=== PATIENT | male | born 2000 | race Caucasian/White ===

== ENCOUNTER 2019-09-19 09:49 | Emergency (ER) | payer MEDICAID ==
[~2019-09-19] VITALS: Ht 182.9 cm; Wt 72.7 kg
[2019-09-19 09:54] VITALS: BP 135/94
[2019-09-19] MEDS ORDERED: IBUPROFEN 800 MG TABLET PO ONE (10:30)
== END 2019-09-19 10:48 | disposition home or self-care (01) ==
LOC: EMS 09:59
DX: M54.5 Low back pain (principal)

== ENCOUNTER 2023-10-14 09:52 | Emergency (ER) | payer OTHER ==
[~2023-10-14] VITALS: Ht 182.9 cm; Wt 122.7 kg
[2023-10-14 09:55] VITALS: TEMP 99.4
[2023-10-14 10:04] LABS: COVID AG,FIA SOURCE NASAL SWAB
[2023-10-14 10:37] LABS: SARS-COV2 (COVID) ANTIGEN,FIA Negative (Negative)
[2023-10-14 10:40] LABS: INFLUENZA TYPE A NEGATIVE FOR TYPE A (NEGATIVE); INFLUENZA TYPE B NEGATIVE FOR TYPE B (NEGATIVE)
[2023-10-14 10:50] LABS: RAPID GROUP A STREP NEGATIVE (NEGATIVE)
[2023-10-14] MEDS ORDERED: PSEU-221 PO (11:42)
[2023-10-14] MEDS ORDERED: IBUP-1506 PO (11:42)
[2023-10-14] MEDS ORDERED: BENZ-227 PO (11:42)
[2023-10-14 11:50] VITALS: BP 135/73; PULSE 90; RESP 18
== END 2023-10-14 12:00 | disposition home or self-care (01) ==
LOC: EMS 09:52
DX: J06.9 Acute upper respiratory infection, unspecified (principal); R05.9 Cough, unspecified; Z20.822 Contact with and (suspected) exposure to COVID-19
CPT/HCPCS: 87430; 87804; 99283

== ENCOUNTER 2023-10-19 19:52 | Emergency (ER) | payer OTHER ==
[~2023-10-19] VITALS: Ht 182.9 cm; Wt 79.5 kg
[~2023-10-19 19:52] MED LIST: BENZ-227 PO; IBUP-1506 PO; PSEU-221 PO
[2023-10-19 20:02] VITALS: BP 148/75; PULSE 77; RESP 18; TEMP 98.7
[2023-10-19] MEDS ORDERED: AZIT250T9 PO (23:14)
== END 2023-10-20 00:22 | disposition home or self-care (01) ==
LOC: EMS 19:52
DX: J01.90 Acute sinusitis, unspecified (principal); J98.4 Other disorders of lung; R05.9 Cough, unspecified
CPT/HCPCS: 71045; 99283